=== PATIENT | female | born 1985 | race Caucasian/White ===

== ENCOUNTER 2023-08-29 09:56 | Emergency (ER) | payer OTHER, SELFPAY ==
[2023-08-29 09:59] VITALS: BP 130/81
[2023-08-29 10:18] VITALS: BMI 21.5
[2023-08-29 10:21] VITALS: BP 119/91
[2023-08-29 10:36] LABS: % Basophils 0.8 % (0-2); % Eosinophils 1.6 % (0-6); % Immature Granulocytes 0.4 % (0-0.5); % Lymphocytes 28.8 % (20.5-51.1); % Monocytes 7.2 % (1.7-9.3); % Neutrophils 61.2 % (42.2-75.2); Absolute Eosinophils 0.1 10^3/uL (0-0.7); Absolute Lymphocytes 1.5 10^3/uL (1.2-3.4); Absolute Monocytes 0.4 10^3/uL (0.1-0.6); Absolute Neutrophils 3.1 10^3/uL (1.4-6.5); Hematocrit 37.6 % (37.0-47.0); Hemoglobin 13.4 g/dL (12.0-16.0); Mean Corp Hgb Conc. 35.6 g/dL (33.0-37.0); Mean Corpuscular Hgb 31.1 pg (27.0-31.0); Mean Corpuscular Volume 87.2 fL (81.0-99.0); Mean Platelet Volume 9.7 fL (7.4-10.4); Nucleated Red Blood Cells % 0 %; Platelet Count 173 10^3/uL (130-400); Red Blood Cell Count 4.31 10^6/uL (4.20-5.40); Red Cell Dist. Width 12.2 % (11.5-14.5); White Blood Cell Count 5.1 10^3/uL (4.8-10.8)
[2023-08-29 10:52] LABS: ALT (SGPT) 23 U/L (0-35); AST (SGOT) 30 U/L (14-36); Albumin 4.6 g/dl (3.5-5.0); Alkaline Phosphatase 35 U/L (38-126); Blood Urea Nitrogen 14 mg/dl (7-17); Calcium 8.8 mg/dl (8.4-10.2); Carbon Dioxide 26 mmol/L (22-30); Chloride 106 mmol/L (98-107); Estimated Creatinine Clearance 97 ml/min; Glucose 96 mg/dl (70-99); Magnesium 1.9 mg/dl (1.6-2.3); Potassium 3.7 mmol/L (3.5-5.1); Sodium 138 mmol/L (135-145); Total Bilirubin 1.1 mg/dl (0.2-1.3); Total Protein 7.9 g/dl (6.3-8.2); eGFR > 60.00
[2023-08-29 11:06] VITALS: BP 110/73
[2023-08-29 11:07] LABS: HCG, Urine Qualitative Screen Negative
[2023-08-29 11:22] LABS: D-Dimer < 0.27 ug/mlFEU (0.00-0.50)
[2023-08-29 11:26] LABS: Troponin I < 0.012 ng/ml
[2023-08-29 11:46] LABS: TSH Reflex To Free T4 1.43 uIU/ml (0.47-4.68)
--- NOTE | 2023-08-29 11:54 | ED.GENMED ---
History of Present Illness
General
Chief Complaint: Heart Rate Problem
Source: patient
Exam Limitations: none
Time Seen by Provider: 08/29/23 10:07
Nursing documentation reviewed up to this point in time: agreed with
Travel History
Have you had any contact with someone who has COVID-19?: No
Do you have any symptoms of coronavirus? Fever > 100 degrees, chills, cough, shortness of breath, sore throat, loss of taste or smell, muscle aches, or headache?: No
History of Present Illness
History of Present Illness:
37-year-old female with a history of palpitations related to either PACs or PVCs in the past presents with intermittent palpitations over the last 2 weeks. Patient says that she is under a lot of stress. 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 Patient says that she is very active, exercises regularly and eats healthy. She cannot think of any changes to her diet in the
past couple weeks that could be contributing to her having more palpitations than what she is used to having. Patient says that the palpitations are feeling like an extra or skipped beat or more prominent beat. They are short-lived and sporadic.
Usually not associated with the feeling of lightheadedness and she is not having any syncope. Patient says she does not get any chest pain or shortness of breath with the symptoms. Patient drinks some water but knows she could drink more so she
has been trying to be mindful of that but this morning she felt pretty lightheaded with the palpitations when she was driving her kids to school. She never passed out and was able to get to school and back. That lasted a couple of minutes probably
about 2 minutes long where she felt lightheaded. She also is just feeling overall looks rundown. Patient still tried to go to the gym a couple of hours later and on the drive again she felt lightheaded with palpitations so she decided to come get
checked out. Patient says she does that once she gets the palpitations she starts getting anxious and is not sure if this is all part of a panic attack. She is under a lot of stress being a jqik-hi-lllm mom and her does travel for work
sometimes which is difficult. Patient has not had any known thyroid disease, DVT or PE risk factors, chest pain, vomiting, significant anemia etc. Patient says she thinks she would just feel better with some reassurance. She has seen cardiology
in the past and wore a Holter monitor but that was several years ago. She has a family history of A-fib in her mom and grandmother
Past History
Past History
ED Past Medical History: Other
ED Past Surgical History:
Social History
Tobacco: Non-smoker
Alcohol: Occasional
Drug: None
Personal:
Living: with family
Employment: Not employed
Review of Systems
Review of Systems
Allergies reviewed?: Yes
All Other Systems: Not applicable
Phy Exam
Physical Exam
Physical Exam:
GENERAL: Alert , in no apparent distress
EYE: pupils equal and reactive
NECK: Supple
ENT: o/p clr, mmm.
CARDIAC: Regular rate and rhythm . No edema
LUNGS: Clear breath sounds bilaterally, no acute respiratory distress, no wheezes/rales/rhonchi
ABDOMEN: Soft, without focal tenderness, no r/g, no cvat, normal bowel sounds
NEUROLOGICAL: Alert and oriented, no focal neuro deficits
SKIN: Warm and dry, skin intact.
MUSCULOSKELETAL: No edema, well perfused. neg carmel's sign
PSYCH: Normal and appropriate interaction.
Course
Orders/Labs/Results
Orders:
Orders
08/29/23 10:02
Electrocardiogram (*1) Urgent
Reason for Study: Chest Pain
EKG- Treatment ONCE
08/29/23 10:17
Test Result ONCE
08/29/23 10:19
Complete Blood Count/With Diff Urgent
Comprehensive Metabolic Panel Urgent
HCG, Urine Qualitative Screen Urgent
Date Specimen was Collected: 08/29/23
Time Specimen was Collected: 10:17
Magnesium Urgent
08/29/23 10:54
D-Dimer Urgent
TSH Reflex To Free T4 Urgent
Troponin I Urgent
Abnormal Lab Results
08/29/23
10:19
MCH 31.1 H pg
(27.0-31.0)
Alkaline Phosphatase 35 L U/L
(38-126)
08/29/23 10:19
08/29/23 10:19
Vital Signs
Initial and Last Documented VS:
Initial Vital Signs
Temp Pulse Resp BP Pulse Ox
98.2 F 64 16 130/81 100
08/29/23 09:59 08/29/23 09:59 08/29/23 09:59 08/29/23 09:59 08/29/23 09:59
Last Documented Vital Signs
Temp Pulse Resp BP Pulse Ox
98.2 F 55 16 110/73 100
08/29/23 09:59 08/29/23 11:30 08/29/23 09:59 08/29/23 11:06 08/29/23 11:30
MDM/Problems Addressed
Differential Diagnosis Includes:
palpitations, pacs, pvcs, anxxiety, thyroid issues, electrolyte disturbance, PE
MDM/Problems Addressed:
37-year-old female with history of palpitations in the past related to PACs and PVCs when she is wearing Holter monitor previously presents for a palpitations over the last 2 weeks which seem to be worse at night. Patient is under some stress, she
stopped working as a PT a couple of years ago with her last baby and has been staying home and is stressed. She was not sure if maybe she was having just stress related panic or if this was something else. She has a family history of atrial
fibrillation. Today when she got them she felt lightheaded which was a little bit different than usual so she came in. Patient had 2 episodes of lightheadedness lasting about 1 to 2 minutes when she was driving her car today and never syncopized.
She has not had any symptoms since. She is not tachycardic, she has a sinus bradycardia which is her baseline with a sinus arrhythmia and no PACs or PVCs on monitor. Her exam was otherwise unremarkable. Her blood pressure normalized to 110/70.
She has normal TSH, normal electrolytes, negative D-dimer, negative troponin
patient can follow-up as an outpatient with cardiology
*Critical Care Note
Total Time (30-74mins, 75-104mins- exclusive of procedures): Not Applicable
ED Attending Note
-
Portions of this chart may have been created with voice recognition software.� Occasional wrong word or��sound alike� substitutions may have occurred due to the inherent limitations of voice recognition software.
Discharge Plan
Departure
Patient Disposition: Home (Routine Discharge)
Date of Disposition: 08/29/23
Time of Disposition: 12:05
Patient with high blood pressure during this ER visit?: No
Condition: Fair
Covid-19: Not Applicable
Discharge Problem:
Palpitations
Instructions: Palpitations (DC)
Prescriptions:
No Action
Vitamin 1 EACH tablet
1 tab PO DAILY
ibuprofen 600 MG tablet
600 mg PO Q4HPRN PRN (Reason: cramps) Qty: 90 0RF
Referrals:
Medardo Matthews MD [Active] - Follow up in 5-7 days (cardiology)
NONE,* [Family Provider] -
Activity Restrictions/Additional Instructions:
Were not sure the cause of your palpitations but could be from sinus arrhythmia or PACs or PVCs. Your hemoglobin was normal, your electrolytes were normal, your thyroid was normal, you had no sign of a blood clot or heart attack. Please call the
cardiology office for follow-up. Consider talking to your doctor also about the possibility of needing some medication for your anxiety if this continues. Return to the ER for passing out with palpitations, severe anxiety, shortness of breath or
any concerns
Interventions
Interventions:
*Risk Screen - Suicide Last Done: 08/29/23 10:18
*General Assessment Last Done: 08/29/23 10:18
*Neglect/Abuse Screening Last Done: 08/29/23 10:18
ED- Fall Risk Assessment Last Done: 08/29/23 10:18
*ED COVID-19 Vaccine History Last Done: 08/29/23 10:18
*Nursing Disposition Last Done: 08/29/23 12:18
ED- Cardiac Assessment Last Done: 08/29/23 10:18
ED- Pulmonary Assessment Last Done: 08/29/23 10:18
Discharge Date and Time
Discharge Date/Time: 08/29/23 12:19
== END 2023-08-29 12:19 | disposition home or self-care (01) ==
LOC: EMR 09:56
PROVIDERS: Physician Assistant; EMERGENCY PHYSICIAN Student in an Organized Health Care Education/Training Program
DX: R00.2 Palpitations (principal); R42 Dizziness and giddiness
CPT/HCPCS: 99284; 80053; 81025; 83735; 84443; 84484; 85025; 85379; 93005

== ENCOUNTER → 2024-12-10 07:57 | Outpatient (REF) | payer OTHER, SELFPAY | LOC: HWRAD 07:57 | PROVIDERS: ATTENDING PHYSICIAN Nurse Practitioner Family; FAMILY PHYSICIAN Nurse Practitioner Adult Health | DX: R14.0 Abdominal distension (gaseous) (principal); R10.2 Pelvic and perineal pain | CPT/HCPCS: 76830; 76856 ==